=== PATIENT | male | born 1975 | race African-American/Black ===

== ENCOUNTER 2019-11-24 10:33 | Inpatient (IN) | payer OTHER ==
[~2019-11-24] VITALS: Ht 185.4 cm; Wt 145.6 kg
[2019-11-24 10:36] VITALS: BP 88/59
[2019-11-24 11:07] LABS: ABSOLUTE NEUTROPHILS 4.4 thou/uL (1.4-8.2); BASOPHILS 0.8 % (0.0-2.0); EOSINOPHILS 1.6 % (0.0-3.0); HEMATOCRIT 36.5 % (42.0-52.0); HEMOGLOBIN 11.9 gm/dL (14.0-18.0); LYMPHOCYTES 11.9 % (24.0-44.0); MCH 30.4 pg (26.0-34.0); MCHC 32.7 g/dL (28.0-37.0); MCV 93.1 fL (80.0-100.0); MONOCYTES 6.4 % (1.0-8.0); PLATELET COUNT 100 thou/uL (150-400); POLYS 79.3 % (36.0-66.0); RBC 3.92 mil/uL (4.50-6.00); RDW 15.4 % (10.5-14.5); WBC 5.6 thou/uL (4.0-11.0)
[2019-11-24 11:14] LABS: CALCIUM 9.1 mg/dL (8.5-10.1); CREATININE 1.4 mg/dL (0.7-1.3); POTASSIUM 5.5 mmol/L (3.5-5.1)
--- NOTE | 2019-11-24 11:24 | EKG ---
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: [facility] : 1975 Requested By: Qiana Villa Order Number: [id number] MD: Jareth Christianson Measurements Intervals [place] Rate: 117 P: [place]: QRS: -59 QRSD: 151 T: 121 QT: 375 QTc: 524 Interpretive Statements Atrial fibrillation IVCD, consider atypical RBBB Left anterior hemiblock, cannot exclude prior inferior infarct No previous ECG available for comparison Electronically Signed On 11-24-2019 11:24:14 CDT by Jareth Christianson [email or web address] <ELECTRONICALLY SIGNED> By: Jareth Christianson MD, FAC 11/24/19 1124 1036 1036 Jareth Christianson MD, [facility] /EPI
[2019-11-24 11:25] LABS: ALBUMIN 4.4 g/dL (3.4-5.0); TOTAL BILIRUBIN 2.9 mg/dL (0.2-1.0); TROPONIN-I 0.11 ng/mL (<0.06)
[2019-11-24 12:11] VITALS: BP 111/68
[2019-11-24 12:35] VITALS: BP 111/68
[2019-11-24 13:10] VITALS: BP 115/90
--- NOTE | 2019-11-24 13:30 | NUR ---
REC PT AT 1330, A&0X4, AMB STEADY, IVF RUNNING, CARDIAC MONITORED, WILL DO ADMISSION AND IMPLEMENT ORDERS. HOSPITALIST ALREADY VISITED W/PT, GAVE ROOM AND CALL LIGHT DEMO. SEE SEPARATE INTERVENTIONS FOR ASSESSMENTS. CARDIAC MONITORED. WILL CONTINUE TO MONITOR
[2019-11-24] MEDS ORDERED: TRAMADOL 50 MG50 MG PO (13:52)
[2019-11-24 15:43] VITALS: BP 108/63
[2019-11-24 21:03] VITALS: BP 108/74
[2019-11-25 00:05] VITALS: BP 114/62
[2019-11-25 05:49] VITALS: BP 100/71
[2019-11-25 05:57] LABS: ABSOLUTE NEUTROPHILS 3.1 thou/uL (1.4-8.2); BASOPHILS 0.9 % (0.0-2.0); EOSINOPHILS 1.2 % (0.0-3.0); HEMOGLOBIN 10.8 gm/dL (14.0-18.0); MCH 30.3 pg (26.0-34.0); MCHC 32.6 g/dL (28.0-37.0); MCV 93.1 fL (80.0-100.0); MONOCYTES 10.7 % (1.0-8.0); PLATELET COUNT 91 thou/uL (150-400); POLYS 75.2 % (36.0-66.0); RBC 3.55 mil/uL (4.50-6.00); RDW 15.5 % (10.5-14.5); WBC 4.2 thou/uL (4.0-11.0)
[2019-11-25 06:06] LABS: CALCIUM 8.9 mg/dL (8.5-10.1); CREATININE 1.6 mg/dL (0.7-1.3)
[2019-11-25 06:08] LABS: POTASSIUM 3.9 mmol/L (3.5-5.1)
[2019-11-25 06:15] LABS: MAGNESIUM 1.6 mg/dL (1.8-2.4); PHOSPHORUS 3.8 mg/dL (2.5-4.9)
[2019-11-25 07:36] VITALS: BP 94/72
--- NOTE | 2019-11-25 08:52 | EKG ---
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: [place] : 1975 Requested By: Jareth Christianson Order Number: [id number] MD: Jareth Christianson Measurements Intervals [place] Rate: 103 P: [place]: QRS: -32 QRSD: 144 T: 148 QT: 384 QTc: 503 Interpretive Statements Incomplete electrocardiogram, recommend repeat tracing Atrial fibrillation Right bundle branch block Compared to ECG 11/24/2019 10:36:52 No significant changes found Electronically Signed On 11-25-2019 8:51:58 CDT by Jareth Christianson [email or web address] <ELECTRONICALLY SIGNED> By: Jareth Christianson MD, [facility] 11/25/19 0851 1347 1347 Jareth Christianson MD, [facility] /EPI
--- NOTE | 2019-11-25 09:28 | 2DMMODE ---
[facility] [place] [address] 2 D/M-MODE ECHOCARDIOGRAM Name: ИРИНА GARDUNO Room #: 210-P ADM IN M.R.#: [id number] Admission: 11/24/19 Attend Phys: Jenny Owens MD Discharge: Date of : 75 Report #: [id number] THIS REPORT FOR: cc: JOSE - No family physician/PCP JOSE - No family physician/PCP Jareth Christianson MD [facility] ~ APPROVED REPORT Study performed: 11/25/2019 08:35:44 EXAM: Comprehensive 2D, Doppler, and color-flow Echocardiogram Patient Location: Bedside Room #: 210 Status: routine BSA: 2.63 HR: 69 bpm BP: 100/71 mmHg Rhythm: Atrial Fibrillation Other Information Study Quality: Good Indications Short of breath. Afib. Hx: Cardiomyopathy, ICD, CHF, HTN. 2D Dimensions RVDd: 54.04 mm IVSd: 11.19 (7-11mm) LVOT Diam: 23.17 (18-24mm) LVDd: 72.23 mm PWd: 11.15 (7-11mm) Ascending Ao: 32.82 (22-36mm) LVDs: 58.05 (25-40mm) Aortic Root: 33.69 mm Volumes Left Atrial Volume (Systole) Single Plane 4CH: 167.04 mL Single Plane 2CH: 157.09 mL LA ESV Index: 69.00 mL/m2 Aortic Valve AoV Peak Maciej.: 0.90 m/s AO Peak Gr.: 3.26 mmHg LVOT Max P.37 mmHg LVOT Max V: 0.59 m/s DARLING Vmax: 2.73 cm2 [facility] [address] [place] [address] 2 D/M-MODE ECHOCARDIOGRAM Name: ИРИНА GARDUNO Room #: 210-P [facility].#: [id number] Admission: 11/24/19 Attend Phys: Jenny Owens, Discharge: Date of : 75 Report #: [id number] Mitral Valve MV Decel. Time: 144.36 ms MV E Max Maciej.: 1.52 m/s Pulmonary Valve PV Peak Maciej.: 0.41 m/s PV Peak Gr.: 0.68 mmHg Tricuspid Valve TR Peak Maciej.: 2.09 m/s RAP Estimate: 15.00 mmHg TR Peak Gr.: 18.00 mmHg PA Pressure: 33.00 mmHg Left Ventricle Left ventricle is severely dilated. There is global hypokinesis of the left ventricle. There is normal left ventricular wall thickness. Left ventricular systolic function is severely decreased. LVEF is 25-30%. This study is not technically sufficient to allow evaluation of the LV diastolic function due to atrial fibrillation. Right Ventricle Right ventricle is dilated. Right ventricle is moderately hypokinetic. Device lead is present in the right ventricle. Atria Biatrial enlargement. Aortic Valve The aortic valve is normal in structure. No aortic regurgitation is present. There is no aortic valvular stenosis. Mitral Valve The mitral valve is normal in structure. Leaflets not coapting properly, teathered posterior leaflet. Severe mitral regurgitation. Tricuspid Valve The tricuspid valve is normal in structure. Severe tricuspid regurgitation. Estimated PAP is 30-35mmHg. Pulmonic Valve The pulmonary valve is normal in structure. Mild pulmonic regurgitation. Great Vessels The aortic root is normal in size. The ascending aorta is normal in [facility] [address] [place] [address] 2 D/M-MODE ECHOCARDIOGRAM Name: ИРИНА GARDUNO Room #: 210-P [facility] IN .R.#: [id number] Admission: 11/24/19 Attend Phys: Jenny Owens, Discharge: Date of : 75 Report #: [id number] size. IVC is dilated and collapses <50% with inspiration. Pericardium There is no pericardial effusion. <Conclusion> Left ventricular systolic function is severely decreased. LVEF is 25-30%. Biatrial enlargement. Lt > right The aortic valve is normal in structure. No aortic regurgitation or stenosis The mitral valve is normal in structure. Leaflets not coapting properly, teathered posterior leaflet. Severe mitral regurgitation. Severe tricuspid regurgitation. Estimated pulmonary artery pressure of 30-35mmHg. There is no pericardial effusion. <ELECTRONICALLY SIGNED> By: Jareth Christianson MD, [facility] 11/25/19927 7 7 Jareth Christianson MD, [facility] /INF
--- NOTE | 2019-11-25 10:10 | HC ---
[facility] [address] [address] CONSULTATION Name: ИРИНА GARDUNO Room #: 210-P [facility] IN M.R.#: [id number] Admission: 11/24/19 Attend Phys: Jenny Owens MD Discharge: Date of : 75 Report #: [id number] THIS REPORT FOR: cc: JOSE - No family physician/PCP JOSE - No family physician/PCP Jareth Christianson MD [facility] ~ DATE OF SERVICE: 11/24/2019 HISTORY OF PRESENT ILLNESS: The patient is a 43-year-old gentleman with severe nonischemic cardiomyopathy. He is originally from [place], [place] and has moved to the [place] area. When he was making a move about a month ago, he developed heart failure and was admitted at where he tells me was diuresed over 60 pounds. He has recently been doing well from the fluid management standpoint. This morning while eating breakfast, he tells me that his defibrillator went off at 8 or 9 times. Paramedics were summoned and the device discharged 4-6 more times. On presentation, he was found to be in atrial fibrillation with a rapid ventricular response. He denies palpitations. He denies chest heaviness or pressure. The ICD was placed in 2002 in [place], at which time coronary angiography was undertaken, normal vasculature. These records have been requested. He denies orthopnea or paroxysmal nocturnal dyspnea. There is a history of diet-controlled diabetes. No history of dyslipidemia, tobacco dependency. There is a history of hypertension and family history of cardiomyopathy. ALLERGIES: There are no known drug allergies. MEDICATIONS: Include potassium 10 mEq daily, Entresto 49/51 one tablet twice daily, Aldactone 25 mg daily, Lasix 80 mg daily, carvedilol 25 mg 1 tablet twice daily; amiodarone 200 mg twice daily, he was told by his chip drier to stop this many months ago and metolazone 5 mg daily. PAST MEDICAL HISTORY: Medical records have been reviewed and include a history of remote elbow surgery, nonischemic cardiomyopathy, congestive heart failure. SOCIAL HISTORY: He is disabled. Nonsmoker, nondrinker. FAMILY HISTORY: Notable for mother with cardiomyopathy and heart failure. REVIEW OF SYSTEMS: All systems negative except as that noted above. PHYSICAL EXAMINATION: GENERAL: A pleasant gentleman in no distress. VITAL SIGNS: Blood pressure is 115/90, heart rate of 106 and irregular, [facility] [address] [place] [address] CONSULTATION Name: ИРИНА GARDUNO Room #: 210-P [facility] IN ..#: [id number] Admission: 11/24/19 Attend Phys: Jenny Owens MD Discharge: Date of : 75 Report #: [id number] respirations unlabored at 18. HEENT: There are neither xanthelasma, subcutaneous xanthomata, oral mucosal or digital cyanosis or kyphoscoliosis present. CHEST: Clear to auscultation and percussion. CARDIAC: An irregularly irregular rhythm with normal S1, S2. 3/6 systolic murmur ABDOMEN: Soft and nontender. EXTREMITIES: With chronic venous stasis changes, trace edema. Radial pulses are 2+. NEUROLOGIC: He is alert with a nonfocal exam. LABORATORY DATA: EKG, atrial fibrillation with a nonspecific intraventricular conduction delay. Sodium is 132, potassium 5.5, creatinine 1.4. Troponin 0.11. ProBNP of 2379. White count 5.6, hemoglobin 11, hematocrit 36, platelet count 100,000. Thyroid function studies; TSH 4.479. Chest x-ray demonstrates cardiomegaly; this appears to be a single lead device. IMPRESSION: 1. Atrial fibrillation with a rapid ventricular response. 2. ICD discharge, possibly related to #1 above. 3. Nonischemic cardiomyopathy, chronic systolic heart failure. 4. Hypertension. 5. Chronic kidney disease. 6. Diabetes, dietary management. RECOMMENDATIONS: 1. Interrogate ICD. 2. Obtain outside hospital records, requested. 3. Continued guideline-directed therapy for cardiomyopathy and congestive heart failure. Further thoughts and plans will be forthcoming based on this evaluation. I suspect his ICD discharges were inappropriate today due to AFib with a rapid ventricular response. <ELECTRONICALLY SIGNED> By: Jareth Christianson MD, FACC 11/25/19 1010 1337 1434 Jareth Christianson MD, FACC /nt
--- NOTE | 2019-11-25 11:05 | EKG ---
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[place] : 1975 Requested By: Jenny Owens Order Number: [id number] MD: Fritz Martinez Measurements Intervals [place] Rate: 117 P: [place]: QRS: -50 QRSD: 148 T: 134 QT: 388 QTc: 542 Interpretive Statements Atrial flutter IVCD, consider atypical RBBB LVH with IVCD, LAD and secondary repol abnrm Probable inferior infarct, acute Prolonged QT interval Compared to ECG 11/24/2019 13:47:29 Electronically Signed On 11-25-2019 11:05:46 CDT by Fritz Martinez [email or web address] <ELECTRONICALLY SIGNED> By: Fritz Martinez MD 11/25/19 1105 1354 1354 Fritz Martinez MD /EPI
--- NOTE | 2019-11-25 14:48 | NUR ---
Nutrition: pt admitted following defibrillator firing > 10 times. Per cardiology suspected related to afib, RVR. Adjusting meds. PMH: NICM, heart failure, DM2. RD consulted related to obesity/CHF. BMI 42, extreme class 3 obesity. BG 107-118, A1C pending. Eating well on Heart healthy carb controlled diet. Pt was very sleepy during visit. RD offered education on healthy weight loss/Na+ control. Pt denied need but agreed to read through materials. RD left materials and name/# at bedside. Encouraged pt to contact RD to review as desired. Consider low nutrition risk.
[2019-11-25 17:05] VITALS: BP 98/55
--- NOTE | 2019-11-25 18:19 | NUR ---
ASSUMED CARE AT SHIFT CHANGE, C/O PAIN AND DISCOMFORT EARLY IN THE SHIFT, AND HAD EPISODE OF INCONTINENCE. DR MEDINA SEEN PATIENT, ADJUSTED MEDICATION, AND CARDIZEM GTT DISCOMTINUED PER ORDERS. VSS, VPACED/AFIB ON THE MONITOR.MAKES NEEDS KNOWN AND CALLS APPROPRIATELY. AND WILL CONTINUE WITH THE CURRENT POC.
[2019-11-25 20:55] VITALS: BP 94/65
[2019-11-26 01:06] LABS: GLYCOHEMOGLOBIN (HGB A1C) 6.1 % (4.8-5.6)
--- NOTE | 2019-11-26 02:15 | NUR ---
ASSESSMENTS CHARTED, MEDS CHARTED GIVEN. PATIENT REFUSED TO TAKE ALL OF THE NIGHT TIME AMIODARONE DOSE STATING THAT IT WOULD UPSET HIS STOMACH, AND REFUSED TO TAKE THE PROTONICS THAT THE DOCTOR PRESCRIBED TO HELP HIS STOMACH. PATIENT STATED THAT HE HAD ONLY BEEN TAKING 1/2 A TAB INSTEAD OF A FULL TAB AND THE DOCTOR WAS GOING TO CHANGE THE DOSE. THE ORIGINAL DOSE WAS CANCELLED AND THE EXACT SAME ORDER REPLACED IT. SPOKE WITH DR. GUZMAN AND HE SAID THE PATIENT COULD TAKE WHATEVER HE WANTED TONIGHT, THAT THEY WOULD STRAIGHTED IT OUT IN THE MORNING. DOCUMENTED GIVEN. FALL PRECAUTIONS IN PLACE DURING SHIFT.
[2019-11-26 04:45] VITALS: BP 95/56
[2019-11-26 05:22] LABS: CALCIUM 8.9 mg/dL (8.5-10.1); CREATININE 1.7 mg/dL (0.7-1.3); POTASSIUM 3.8 mmol/L (3.5-5.1)
[2019-11-26 08:12] VITALS: BP 115/77
[2019-11-26 08:39] LABS: ALBUMIN 3.6 g/dL (3.4-5.0); DIRECT BILIRUBIN 1.3 mg/dL (<0.1-0.2); TOTAL PROTEIN 8.1 g/dL (6.4-8.2)
--- NOTE | 2019-11-26 09:58 | EKG ---
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
[2019-11-26] MEDS ORDERED: METOLAZONE 2.52.5 MG PO (11:52)
[2019-11-26] MEDS ORDERED: LASIX 40 MG TAB40 M1 PO (11:52)
[2019-11-26] MEDS ORDERED: CARVEDILOL25 MG PO (11:52)
[2019-11-26] MEDS ORDERED: K-DUR 20 MEQ T20 MEQ PO (11:52)
[2019-11-26] MEDS ORDERED: ENTRESTO 24 MG1 EACH PO (11:52)
[2019-11-26] MEDS ORDERED: SPIRONOLACTONE25 M1 PO (11:52)
[2019-11-26] MEDS ORDERED: PACERONE 200 M200 M1 PO (11:52)
[2019-11-26 14:35] VITALS: BP 115/77
--- NOTE | 2019-11-26 15:32 | NUR ---
ASSUMED CARE PT APPROX 1500. PT ALERT AND ORIENTED. VSS. 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 PT CURRENTLY SITTING UP IN CHAIR, NEEDS IN REACH DENIES CONCERNS. WILL CONT TO MONITOR PT UNTIL DC.
[2019-11-26] MEDS ORDERED: XARELTO20 MG PO (15:46)
[2019-11-26 16:40] VITALS: BP 92/59
--- NOTE | 2019-11-26 18:00 | NUR ---
PT PRESCRIPTONS SENT TO [facility], PT REQUESTED THEY BE SENT TO [facility] [place]. OUTPATIENT [facility] CONTACTED, SPOKE WITH LUCIANO, REQUESTED THAT THE PHARMACIST FROM [facility] CALL AND SPEAK WITH HIM. [facility] CONTACTED, SPOKE WITH AARON, [facility] OUTPATIENT NUMBER GIVEN TO AARON, INSTRUCTED TO CALL ALTONA WITH [facility] TO GET MEDS TRANSFERRED.
[2019-11-26 18:12] VITALS: BP 115/77
--- NOTE | 2019-11-26 18:30 | NUR ---
PT LEFT UNIT WITH ALL BELONGINGS AT APPROX 1820. IV REMOVED TELE REMOVED.
== END 2019-11-26 18:20 | disposition home or self-care (01) | DRG 315 ==
LOC: ER 10:33 → 2N 12:40
PROVIDERS: Emergency Medicine; Internal Medicine; ADMIT Internal Medicine; ATTEND Internal Medicine
DX: T82.118A Breakdown (mechanical) of other cardiac electronic device, initial encounter (principal); Z68.41 Body mass index [BMI] 40.0-44.9, adult; I42.9 Cardiomyopathy, unspecified; I50.22 Chronic systolic (congestive) heart failure; I13.0 Hypertensive heart and chronic kidney disease with heart failure and stage 1 through stage 4 chronic kidney disease, or unspecified chronic kidney disease; Z87.891 Personal history of nicotine dependence; I48.91 Unspecified atrial fibrillation; N18.30 Chronic kidney disease, stage 3 unspecified; E66.01 Morbid (severe) obesity due to excess calories; E87.5 Hyperkalemia; D69.6 Thrombocytopenia, unspecified; D64.9 Anemia, unspecified; E11.22 Type 2 diabetes mellitus with diabetic chronic kidney disease; Y83.8 Other surgical procedures as the cause of abnormal reaction of the patient, or of later complication, without mention of misadventure at the time of the procedure; Y92.89 Other specified places as the place of occurrence of the external cause; Z88.6 Allergy status to analgesic agent
CPT/HCPCS: 10081

== ENCOUNTER 2019-11-27 13:01 | Inpatient (IN) | payer OTHER ==
[~2019-11-27] VITALS: Ht 185.4 cm; Wt 141.5 kg
--- NOTE | ~2019-11-27 | HC ---
[facility] [place] [address] CONSULTATION Name: ИРИНА GARDUNO Room #: 212-P ADM IN M.R.#: [id number] Admission: 11/27/19 Attend Phys: Luis Felipe Menchaca MD Discharge: Date of : 75 Report #: [id number] THIS REPORT FOR: cc: FAM - No family physician/PCP FAM - No family physician/PCP Gilberto Bennett MD ~ DATE OF SERVICE: 11/28/2019 REASON FOR CONSULTATION: Abdominal pain. ASSESSMENT: Abdominal pain. RECOMMENDATIONS: Thank you for the consultation. We will follow along. IMAGING: Reviewed. A CT scan is relatively not impressive regarding his gallbladder. In addition to that, the patient reports that his pain is resolved. Therefore, there is no surgery planned for this patient; however, if his symptoms return or his presentation changes, we will reconsider. If other consultants are more concerned about cholecystitis. The next step would be a PIPIDA scan, however, the patient is currently asymptomatic. HISTORY OF PRESENT ILLNESS: The patient is a 43-year-old gentleman who presented with epigastric abdominal pain. The patient was found by his family member to be nauseated and vomiting and on the floor with abdominal pain, so the ER was called. These symptoms have since resolved. The patient was recently hospitalized for similar symptoms. The patient was discharged home. PAST MEDICAL HISTORY: 1. Morbid obesity. 2. Hyperkalemia. 3. Chronic kidney disease, stage 3. 4. Atrial fibrillation with rapid ventricular response. 5. Congestive heart failure. 6. Nonischemic cardiomyopathy. 7. Status post automatic implantable cardioverter-defibrillator. 8. Hypertension. 9. Diabetes mellitus. PAST SURGICAL HISTORY: Elbow surgery. SOCIAL HISTORY: Denies use of alcohol or tobacco. He does use marijuana occasionally. [facility] [address] [place] [address] CONSULTATION Name: SHAANИРИНА Room #: 212-P [facility] IN M.R.#: [id number] Admission: 11/27/19 Attend Phys: Luis Felipe Menchaca MD Discharge: Date of : 75 Report #: [id number] REVIEW OF SYSTEMS: CONSTITUTIONAL: No fever. No chills. HEENT: Denies blurring of vision, double vision, headaches, hearing loss, sinus drainage or sore throat. Denies blurring of vision, double vision, headaches, hearing loss, sinus drainage or sore throat. CARDIOVASCULAR: See above and below. RESPIRATORY: Denies cough, wheezing, hemoptysis, or shortness of air. GASTROINTESTINAL: See above and below. GENITOURINARY: Denies dysuria or hematuria or kidney stones. No urinary frequency, urgency or incontinence. Denies dysuria or hematuria or kidney stones. No urinary frequency, urgency or incontinence. MUSCULOSKELETAL: No joint pain. No muscle pain. NEUROLOGICAL: Denies tremor, stroke or seizure. Denies tremor, stroke or seizure. HEMATOLOGIC / LYMPHATICS: Denies easy bruising, easy bleeding or enlarged lymph nodes. SKIN: No rash or ulceration. ENDOCRINE: No heat or cold intolerance PSYCHIATRIC: Denies depression, anxiety, or schizophrenia. PHYSICAL EXAMINATION: VITAL SIGNS: Temperature 36.1, pulse 67, respiratory rate 18, blood pressure 94/63, pulse oximetry 99%. GENERAL: No apparent distress, alert and oriented x3. HEENT: PERRLA, EOMI, MMM, NCAT NECK: Supple. No LAD CARDIOVASCULAR: Regular rhythm and rate. Hemodynamically stable. Normal capillary refill. Regular rhythm and rate. Hemodynamically stable. Normal capillary refill. PULMONARY: Nonlabored. Clear to auscultation bilaterally ABDOMEN: Soft, nontender, nondistended, no guarding, no rebound, no rigidity. EXTREMITIES: Calves soft, nontender, no edema. SKIN: No rashes or bruises. PSYCHIATRIC: Normal mood and affect Normal mood and affect NEUROLOGICAL: Grossly intact. CN II-XII grossly intact. MUSCULOSKELETAL: Bilateral severe extremity edema with chronic skin changes. LYMPHATICS: No cervical, inguinal, or supraclavicular lymphadenopathy. LABORATORY DATA: White blood count 4.6, hemoglobin 11, hematocrit 33.4, platelets 108. Sodium 137, potassium 3.8, creatinine 1.4. Troponin 0.09. IMAGING: CT of the abdomen and pelvis. IMPRESSION AND PLAN: Bladder wall thickening with perivascular inflammatory [address] [address] CONSULTATION Name: ИРИНА GARDUNO Room #: 212-P [facility] IN M.R.#: [id number] Admission: 11/27/19 Attend Phys: Luis Felipe Menchaca MD Discharge: Date of : 75 Report #: [id number] soft tissue stranding concerning for urinary tract infection. Correlate with urinalysis. Nonspecific small amount of perihepatic, perisplenic and pelvic free fluid. No focal inflammatory mass or bowel obstruction. By: 1448 2152 Gilberto Bennett MD /nt
[2019-11-27 13:01] VITALS: BP 93/50
[~2019-11-27 13:01] MED LIST: CARVEDILOL25 MG PO; ENTRESTO 24 MG1 EACH PO; K-DUR 20 MEQ T20 MEQ PO; LASIX 40 MG TAB40 M1 PO; METOLAZONE 2.52.5 MG PO; PACERONE 200 M200 M1 PO; SPIRONOLACTONE25 M1 PO; TRAMADOL 50 MG50 MG PO; XARELTO20 MG PO
--- NOTE | 2019-11-27 13:11 | NUR ---
Pt denies fevers. Denies abdominal surgery. Reports he had an US that checked out during his recent hospital stay. Reports he took his medicine and then 5 minutes later started having middle, lower abdominal pain
--- NOTE | 2019-11-27 13:27 | NUR ---
Lab notified to come straight stick patient at this time.
[2019-11-27 14:28] LABS: HEMATOCRIT 33.4 % (42.0-52.0); MCH 30.4 pg (26.0-34.0); MCHC 32.9 g/dL (28.0-37.0); MCV 92.5 fL (80.0-100.0); RBC 3.61 mil/uL (4.50-6.00); WBC 4.6 thou/uL (4.0-11.0)
[2019-11-27 14:37] LABS: CALCIUM 8.7 mg/dL (8.5-10.1); CREATININE 1.7 mg/dL (0.7-1.3)
[2019-11-27 14:43] LABS: ALBUMIN 3.4 g/dL (3.4-5.0); TOTAL BILIRUBIN 1.5 mg/dL (0.2-1.0); TOTAL PROTEIN 8.3 g/dL (6.4-8.2)
--- NOTE | 2019-11-27 15:45 | NUR ---
MONITOR WITH RUN OF WIDE COMPLEX TACHYCARDIA REPEAT PT DENIES PAIN OR DISCOMFORT INFORMED
--- NOTE | 2019-11-27 15:51 | EKG ---
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[facility] : 1975 Requested By: Hugh Etienne Order Number: [id number] MD: Abhijit Palomo Measurements Intervals [place] Rate: 98 P: [place]: QRS: -56 QRSD: 169 T: 130 QT: 433 QTc: 553 Interpretive Statements Atrial fibrillation IVCD, consider atypical RBBB Abnrm T, consider ischemia, anterolateral lds Compared to ECG 11/26/2019 07:23:42 No significant changes Electronically Signed On 11-27-2019 15:51:01 CDT by Abhijit Palomo [email or web address] <ELECTRONICALLY SIGNED> By: Abhijit Palomo MD, FACC 11/27/19 1551 1307 1307 Abhijit Palomo MD, [facility] /EPI
[2019-11-27 17:21] LABS: URINE BILIRUBIN NEGATIVE (Negative); URINE BLOOD 1+ (Negative); URINE CLARITY CLEAR; URINE COLOR YELLOW; URINE GLUCOSE-RANDOM* NEGATIVE (Negative); URINE KETONES NEGATIVE (Negative); URINE LEUKOCYTES-REFLEX NEGATIVE (Negative); URINE NITRITE-REFLEX NEGATIVE (Negative); URINE PROTEIN (DIPSTICK) NEGATIVE (Negative)
[2019-11-27 17:31] LABS: BACTERIA-REFLEX 1-9 Few /HPF (None Seen); CASTS None Seen /LPF (None Seen); CRYSTALS None Seen /LPF (None Seen); SQUAMOUS None Seen /LPF (0-3); URINE RBC 3-10 Few /HPF (0-2); URINE WBC-REFLEX None Seen /HPF (0-5)
[2019-11-27 19:50] VITALS: BP 99/64
--- NOTE | 2019-11-27 19:50 | NUR ---
HAND OFF TOOL SENT TO [facility]
[2019-11-27 20:00] VITALS: BP 108/66
[2019-11-27 20:45] VITALS: BP 125/94
[2019-11-27 23:51] LABS: CHOLESTEROL 66 mg/dL (<200); HDL CHOLESTEROL 29 mg/dL (>40); LDL CHOLESTEROL 29 mg/dL (<100); SERUM ASSESSMENT Clear; TC:HDL 2.3 Ratio (Not establshd); TRIGLYCERIDE 42 mg/dL (<150); VLDL 8 mg/dL (<40)
[2019-11-28 00:45] VITALS: BP 103/69
--- NOTE | 2019-11-28 01:04 | NUR ---
PT NEW ADMIT. ARRIVE ON UNIT 2000, FOR ABDOMINAL PAIN. PT DENIES CHEST PAIN, NAUSEA AND VOMITING. ADMISSION COMPLETED. CONSENT FORMS SIGNED. ORIENTED TO ROOM AND CALL LIGHT SYSTEM. PT HAS DIABETIC FOOT ULCERS; LEFT LOWER EXTREMITY, RIGHT SECOND TOE, AND BETWEEN THE LEFT AND SECOND TOE. CLEAN WITH SOAP AND WATER. GAUZE BETWEEN TOES TO ABSORB MOISTURE. AFIB RATE CONTROLLED. PT REPORTS BEING UNABLE TO CARE FOR HIS FEET INDEPENDENTLY. WILL CONTINUE TO MONITOR AND FOLLOW POC.
[2019-11-28 04:45] VITALS: BP 95/63
[2019-11-28 06:16] LABS: CALCIUM 9.1 mg/dL (8.5-10.1); CREATININE 1.4 mg/dL (0.7-1.3); POTASSIUM 3.8 mmol/L (3.5-5.1); TROPONIN-I 0.09 ng/mL (<0.06)
--- NOTE | 2019-11-28 07:53 | EKG ---
[facility] [place] [address] [place] [address] ELECTROCARDIOGRAM REPORT Name: MOMO GARDUNOIAN Room #: 212- ADM IN M.R.#: [id number] Admission: 11/27/19 Attend Phys: Luis Felipe Menchaca MD Discharge: Date of : 75 Report #: [id number] THIS REPORT FOR: cc: JOSE - Nubia family physician/PCP JOSE - Nubia family physician/PCP Abhijit Palomo MD [facility] ~ THIS REPORT FOR: //name// [facility] ED Test Date: 2019-11-27 Test Time: 15:41:04 Pat Name: ИРИНА GARDUNO Department: Room: 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
[2019-11-28 08:20] VITALS: BP 107/64
--- NOTE | 2019-11-28 10:14 | NUR ---
Assess due to RD consult. Pt recently discharged from this facility and now readmitted with abdominal pain, nausea. Had refused consent for lap sanjuana. Surgery has been reconsulted for this admission. BMI 41.2=extreme obesity. Also hx AICD, HTN, DM, CHF. Pt had accepted nutrition education materials last admit for heart healthy diet. A1C 6.1, excellent BG control. Has right toe ulcer. Presents at low nutrition risk.
--- NOTE | 2019-11-28 11:08 | NUR ---
WOUND CONSULT; I AM HERE TODAY TO ASSESS BILATERAL FEET/TOES/LEGS. THE RN INFORMED ME OF A LEFT BUTTOCK WOUND. THE BILATERAL TOES ARE RELATED TO AN UKNOWN ETIOLOGY POSSIBLY FUNGAL. RN REPORT THE PATIENT IS A DIABETIC. THE BILATERAL TOE WOUNDS HAVE PINK WOUND BEDS. THE BUTTOCK WOUND LOOKS LIKE AN UNSTABLE BLISTER. CANNOT RULE OUT CONTAMINATION VS INFECTION. THE PATIENT ALSO NEEDS AMMONIA LACTATE LOTION. RECOMMENDATION; CONSULT DR INDU NICOLE DISCUSSED WITH RN
[2019-11-28 11:30] VITALS: BP 94/63
[2019-11-28 15:30] VITALS: BP 96/60
--- NOTE | 2019-11-28 17:25 | NUR ---
ASSESSMENT CHARTED - MEDS PER JANICE - RADHA DIET AND FLUIDS. PT NOT WANTING TO GET OUT OF BED AND UP TO THE BATHROOM TO USE URINAL - INFORMED PATIENT THAT DOCTOR WANTED HIM OUT OF BED AND MOVING TO ENSURE THAT HEART RATE STAY LOW - WAS NOT HAPPY WITH THIS - STATED HE WOULD GET OUT OF BED WHEN HE WAS READY AND NOT BEFORE - WHEN ROUNDING LATER PATIENT STATED THAT HE GOT OUT OF THE BED - WALKED AROOUND THE ROOM AND INTO THE BATHROOM - NOT SURE WHEN PATIENT DID THIS BUT MONITOR DID NOT ALARM. SEEN BY WOUND CARE THIS SHIFT - LIGHT DRESSING TO FEET. PT STARTED ON CARDIZEM PO THIS SHIFT - PT DID HAVE SOME SUSTAINED TACHYCARDIA WHEN HE WAS UP ON THE COMMODE THIS AM HAVE A BM. PLACED IN BED AND HR DROPPED BACK DOWN. NO CO'S OF PAIN OR NAUSEA. APPEARS TO BE COMFORTABLE AT THE PRESENT TIME.
[2019-11-28 20:15] VITALS: BP 103/69
[2019-11-29 00:45] VITALS: BP 93/57
--- NOTE | 2019-11-29 03:34 | NUR ---
ASSUMED CARE 1900, PT ALERT AND ORIENTED. DENIES ANY ABDOMINAL PAIN. REPORTS INTERMITTENT SYMPTOMATIC HEART FLUTTER. PT RELUCTANT TO AMBULATE FURTHER DISTANCE DUE TO FEAR OF INCREASED HEART RATE. VITALS STABLE , BUT SOFT PRESSURES. DENIES DIZZYNESS, OR CHEST PAIN. NO OTHER CONCERNS AT THIS TIME.
[2019-11-29 04:45] VITALS: BP 92/54
[2019-11-29] MEDS ORDERED: CARDIZEM CD240 M1 PO (07:46)
[2019-11-29 08:00] VITALS: BP 90/50
--- NOTE | 2019-11-29 09:21 | NUR ---
ASSESSMENT: CM REVIEWED CHART AND SPOKE WITH PATIENT. PT WAS JUST RECENTLY HERE 11/23 AND DISCHARGED ON 11/25 AFTER REFUSING TO HAVE A LAP [place]. PT NOW PRESENTS BACK TO [facility] WITH INCREASED TROPONIN AND ABDOMINAL PAIN. PT REPORTS HE LIVES IN AN [place] WITH HIS MOTHER. PT REPORTS NO STEPS TO ENTER AND HAS AN ELEVATOR. PT REPORTS THAT HE AMBULATES INDEPENDENTLY AND IS INDEPENDENT WITH ADLS. PT REPORTS THAT HE HAS NOT HAD HH IN THE PAST OR BEEN TO AN ACUTE REHAB/SNF. PT DENIES HAVING ANY OXYGEN AT HOME OR CPAP. PT HAD INCREASED HR AND ICD WAS REPROGRAMMED. CM DISCUSSED ROLE. PT DOES NOT ANTICIPATE HAVING AND NEEDS FROM CM PRIOR TO DISCHARGE. CM WILL COTINUE TO FOLLOW TO ASSIST NEEDED.
[2019-11-29 11:24] VITALS: BP 85/55
[2019-11-29] MEDS ORDERED: PEPCID20 MG PO (12:34)
[2019-11-29 17:14] VITALS: BP 90/65
--- NOTE | 2019-11-29 19:23 | NUR ---
assessment as charted - meds as per apr - coreg held this evening due to low bp. pr sitting on side of the bed for the day with legs dangling would not elelvate - wwound care doc orered unltrsound of legs bilat pt refused to have these done - stating his legshave been theway they are forever and they are actually better than they used to be. encourage patient to have test done adimantly refused. pt to have dressing placed to legs bilat - unable to complet on my shift due to dr not ordering med and then pharmacy not delivering - inform night nurse of need to do dressing. pt upset this afternoon stating he is scared to go home and what is going to happen to him - informed hm that we would be ordering home health for him to do dressing changes and monitor him at home.
[2019-11-30 04:30] VITALS: BP 87/56
--- NOTE | 2019-11-30 05:30 | NUR ---
NO EVENTS OVERNIGHT. LOWER EXTREMETIES DRESSING CHANGE DONE. PT NOT SLEEPING DESPITE MULTIPLE ENCOURAGEMENTS. REPORTS INTERMITTENT HEART FLUTTERS, NO REPORTS OF ICD FIRING. PT REMAINS WITH SOFT BPs. WILL CONTINUE TO MONITOR.
[2019-11-30 08:25] VITALS: BP 96/62
[2019-11-30 12:00] VITALS: BP 97/55
[2019-11-30 13:06] VITALS: BP 97/55
--- NOTE | 2019-11-30 14:59 | NUR ---
ASSUMED CARE AT SHIFT CHANGE, ASSESSMENT CHARTED, AND VSS. DISCHARGE AND MEDICATIONS INSTRUCTION GIVEN TO PATIENT. PATIENT DISCHARGED HOME.
== END 2019-11-30 14:42 | disposition home or self-care (01) | DRG 444 ==
LOC: ER 13:01 → 2N 19:24 → EROBS 19:24 → 2N 20:00
PROVIDERS: Emergency Medicine; Nurse Practitioner Family; ADMIT Hospitalist; ATTEND Hospitalist
DX: K81.0 Acute cholecystitis (principal); I21.4 Non-ST elevation (NSTEMI) myocardial infarction; I13.0 Hypertensive heart and chronic kidney disease with heart failure and stage 1 through stage 4 chronic kidney disease, or unspecified chronic kidney disease; I50.22 Chronic systolic (congestive) heart failure; I48.20 Chronic atrial fibrillation, unspecified; I42.8 Other cardiomyopathies; Z68.41 Body mass index [BMI] 40.0-44.9, adult; N30.90 Cystitis, unspecified without hematuria; E87.5 Hyperkalemia; N18.30 Chronic kidney disease, stage 3 unspecified; E11.22 Type 2 diabetes mellitus with diabetic chronic kidney disease; E66.01 Morbid (severe) obesity due to excess calories; Z79.899 Other long term (current) drug therapy; Z79.01 Long term (current) use of anticoagulants; Z87.891 Personal history of nicotine dependence; Z95.810 Presence of automatic (implantable) cardiac defibrillator
CPT/HCPCS: 10081

== ENCOUNTER 2019-12-01 04:57 | Inpatient (IN) | payer OTHER ==
[~2019-12-01] VITALS: Ht 185.4 cm; Wt 96.2 kg
--- NOTE | ~2019-12-01 | HC ---
[facility] [place] [address] [place] [address] CONSULTATION Name: ИРИНА GARDUNO Room #: 202-P [facility] IN M.R.#: [id number] Admission: 12/01/19 Attend Phys: Jenny Owens MD Discharge: Date of : 75 Report #: [id number] THIS REPORT FOR: cc: JOSE - No family physician/PCP JOSE - No family physician/PCP Maribel Suarez MD ~ REASON FOR PRESENTATION: Low blood pressure. REASON FOR CONSULTATION: Acute kidney injury. HISTORY OF PRESENT ILLNESS: A 43-year-old who presented on the with severe hypotension and was found to have acute kidney injury. Currently, the patient's blood pressure had been in the 80s-50s range. The patient's creatinine on the was reported to be 4.2. The patient's prior creatinine values were in the 1.4-1.6. He has advanced cardiomyopathy with an ejection fraction of around 30%. He was found to have an AFib with RVR. He was initiated on diltiazem. The patient's chronic medications include Entresto, spironolactone, furosemide, diltiazem. He is not aware of any particular kidney issues in the past. No known personal or family history of cystic kidney disease, nephrolithiasis, glomerulonephritis, connective tissue disorders. No known history of proteinuria or hematuria. On arrival of the EMS, the patient's blood pressure was 58/30. The patient's creatinine had stabilized at 4.2. I was asked to assist with the management of his chronic kidney disease and acute kidney injury. PAST MEDICAL HISTORY: Extensive and includes the followin. Cardiomyopathy with ejection fractions of around 30%. 2. Status post automatic implantable cardioverter-defibrillator. 3. Hypertension. 4. Diabetes mellitus. 5. Chronic lower extremity wound and edema. 6. Morbid obesity. 7. Gallbladder surgery. MEDICATIONS: 1. Xarelto. 2. Neurontin. 3. Carvedilol. 4. Entresto. 5. Spironolactone. 6. Furosemide. ALLERGIES: None. FAMILY HISTORY: No known family history of hypertension or CKD. [facility] [address] [place] [address] CONSULTATION Name: ИРИНА GARDUNO Room #: 202-P [facility] IN M.R.#: [id number] Admission: 12/01/19 Attend Phys: Jenny Owens MD Discharge: Date of : 75 Report #: [id number] REVIEW OF SYSTEMS: GENERAL: No fever or chills. CARDIOVASCULAR: Significant for lightheadedness. CHEST AND PULMONARY: No cough or hemoptysis. GASTROINTESTINAL: No nausea or vomiting. GENITOURINARY: No frequency, no urgency; however, he did report to previous issues with bladder blockage as he stated. PAST SURGICAL HISTORY: AICD placement. PHYSICAL EXAMINATION: VITAL SIGNS: Temperature 36.7, pulse rate 97, respiratory rate 20, blood pressure 93/60. HEAD AND NECK: No jugular venous distention. CHEST: No crackles. CARDIOVASCULAR: No rub. ABDOMEN: Soft. LOWER EXTREMITIES: Extensive edema. LABORATORY VALUES: Sodium is 136, BUN is 67, creatinine is 4.2. Hemoglobin is 11, platelets 108. IMPRESSION AND PLAN: 1. Acute kidney injury. 2. Severe cardiomyopathy. 3. Severe hypertension. 4. Atrial fibrillation. 5. The patient's acute kidney injury is all related to hypertension. 6. Give some albumin given his cardiomyopathy history. 7. Continue to hold angiotensin converting enzyme inhibitor, Entresto, spironolactone, Lasix for now. 8. Management of atrial fibrillation per Cardiology. 9. Watch blood pressure. 10. Avoid nephrotoxins. 11. No diuresis at this point. 12. Salt restriction. 13. Wound care. By: [id number] Maribel Suarez MD /nt
[~2019-12-01 04:57] MED LIST changes: +CARDIZEM CD240 M1 PO; +PEPCID20 MG PO
[2019-12-01 05:24] LABS: HEMATOCRIT 33.1 % (42.0-52.0); MCH 30.4 pg (26.0-34.0); MCHC 33.2 g/dL (28.0-37.0); MCV 91.7 fL (80.0-100.0); PLATELET COUNT 108 thou/uL (150-400); RBC 3.61 mil/uL (4.50-6.00); RDW 15.1 % (10.5-14.5); WBC 4.9 thou/uL (4.0-11.0)
[2019-12-01 05:35] LABS: ANION GAP 13 mmol/L (7-16); BUN 61 mg/dL (7-18); CALCIUM 8.9 mg/dL (8.5-10.1); CHLORIDE 98 mmol/L (98-107); CO2 25 mmol/L (21-32); CREATININE 4.2 mg/dL (0.7-1.3); GLUCOSE 144 mg/dL (74-106); POTASSIUM 4.4 mmol/L (3.5-5.1); SODIUM 136 mmol/L (136-145)
[2019-12-01 05:45] LABS: ALBUMIN 3.7 g/dL (3.4-5.0); LIPASE 65 U/L (73-393); MAGNESIUM 1.7 mg/dL (1.8-2.4); SGOT 12 U/L (15-37); SGPT 16 U/L (30-65); TOTAL BILIRUBIN 1.5 mg/dL (0.2-1.0); TOTAL PROTEIN 8.4 g/dL (6.4-8.2); TROPONIN-I <0.06 ng/mL (<0.06)
[2019-12-01 06:22] VITALS: BP 100/61
--- NOTE | 2019-12-01 06:27 | NUR ---
ATTEMPTED TO CALL REPORT, UNIT REPORTS NOT KNOWING OF PATIENT AND WILL CALL BACK SHORTLY.
[2019-12-01 07:03] VITALS: BP 100/61
[2019-12-01 08:38] VITALS: BP 107/41
[2019-12-01 10:08] LABS: ABSOLUTE NEUTROPHILS 3.1 thou/uL (1.4-8.2); ANISOCYTOSIS 1+
[2019-12-01 12:54] VITALS: BP 77/46; BP 78/47
[2019-12-01 13:09] LABS: CREATININE 4.1 mg/dL (0.7-1.3); POTASSIUM 4.5 mmol/L (3.5-5.1)
[2019-12-01 15:05] VITALS: BP 81/52
--- NOTE | 2019-12-01 18:00 | NUR ---
PT ARRIVED TO UNIT AT APPROX 0700. PT ALERT AND ORIENTED. LABRORED BREATHING. PT ON 2L AND STATES WEARS OXYGEN AT HOME "SOMETIMES." STATES FEELS SLIGHTLY SOB. PT SEEN BY CARDIOLOGY NO NEW ORDERS. PT SEEN BY HOSPITALIST ORDERS RECEIVED. BP LOW THIS AFTERNOON PHYSICIAN NOTIFIED ORDERS RECEIVED. ADMISSION COMPLETE. PICTURES TAKEN OF WOUNDS, LEGS RE-DRESSED. WOUND CONSULT PUT IN PER ORDERS. ADMISSION STRIP PRINTED AND DOCUMENTED. PT CURRENTLY SITTINGUP IN BED DENIES NEEDS AT THIS TIME. WILL CONT TO MONITOR AND FOLLOW POC. WILL PASS ON REPORT TO NOC RN.
[2019-12-01 19:48] VITALS: BP 98/67
--- NOTE | 2019-12-02 03:48 | NUR ---
Assumed pt care at 1900. Pt is alert and oriented. No sign of distress noted in pt. Denies pain. Pt is sitting at the bedside. Assessment completed and documented. Fall precaution in place. Scheduled meds administered to pt. No acute events overnight. Pt is stable. Continue to monitor. No further needs at this time.
[2019-12-02 04:26] LABS: CALCIUM 9.3 mg/dL (8.5-10.1); CREATININE 4.2 mg/dL (0.7-1.3); POTASSIUM 4.2 mmol/L (3.5-5.1)
[2019-12-02 05:33] VITALS: BP 93/68
--- NOTE | 2019-12-02 07:31 | EKG ---
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: mpakenney : 1975 Requested By: Hugh Etienne Order Number: [id number] MD: Jareth Christianson Measurements Intervals [place] Rate: 54 P: IN: QRS: -57 QRSD: 159 T: 123 QT: 539 QTc: 511 Interpretive Statements Atrial fibrillation IVCD, consider atypical RBBB Left anterior hemiblock Compared to ECG 11/27/2019 15:41:04 Heart rate has slowed Electronically Signed On 12-02-2019 7:31:35 CDT by Jareth Christianson [email or web address] <ELECTRONICALLY SIGNED> By: Jareth Christianson MD, FAC 12/02/19 0731 050 0 Jareth Christianson MD, [facility] /EPI
--- NOTE | 2019-12-02 07:32 | EKG ---
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: WALLY : 1975 Requested By: Fritz Martinez Order Number: [id number] MD: Jareth Christianson Measurements Intervals [place] Rate: 55 P: [place]: QRS: -55 QRSD: 153 T: 128 QT: 521 QTc: 499 Interpretive Statements Atrial fibrillation IVCD, consider atypical RBBB Left anterior hemiblock Compared to ECG 12/01/2019 05:01:09 No significant changes Electronically Signed On 12-02-2019 7:31:48 CDT by Jareth Christianson [email or web address] <ELECTRONICALLY SIGNED> By: Jareth Christianson MD, FACC 12/02/19 0731 1157 1157 Jareth Christianson MD, [facility] /EPI
[2019-12-02 07:38] VITALS: BP 88/63
[2019-12-02 09:56] LABS: URINE BILIRUBIN NEGATIVE (Negative); URINE BLOOD TRACE (Negative); URINE CLARITY CLEAR; URINE COLOR YELLOW; URINE GLUCOSE-RANDOM* NEGATIVE (Negative); URINE KETONES NEGATIVE (Negative); URINE LEUKOCYTES-REFLEX NEGATIVE (Negative); URINE NITRITE-REFLEX NEGATIVE (Negative); URINE PROTEIN (DIPSTICK) NEGATIVE (Negative); URINE SPECIFIC GRAVITY 1.015 (1.005-1.035); URINE UROBILINOGEN 0.2 E.U./dl (0.2-1.0)
[2019-12-02 11:11] VITALS: BP 97/58
[2019-12-02 16:20] VITALS: BP 100/59
--- NOTE | 2019-12-02 18:38 | NUR ---
ASSUMED CARE PT SHIFT CHANGE. ASSESSMENTS CHARTED. VSS BP LOW MAP STABLE. PT SEEN BY NEPHROLOGY RENAL US ORDERER REFER TO RESULTS. PT REFUSED OT, WORKED WITH PHYS THERAPY TOLERATING FAIR. O2 SATS WNL ON 2L O2. AT APPROX 1710 PT HR ELEVATED IN 170S CARDIOLOGY NOTIFIED ORDERS RECEIVED FOR INCREASED AMIO TONIGHT. DILT GTT STARTED TEMPORARILY PER ORDERS FOR ELEVATED HR. GTT PAUSED PER ORDERS BP <100 SYSTOLIC. FAMILY UPDATED ON CARE. PT CURRENTLY LAYING IN BED ON PHONE WITH FAMILY. BP STABLE. HR STABLE. CONTINUING TO MONITOR. WILL PASS ON REPORT TO SAIRA ELDER.
[2019-12-02 19:02] VITALS: BP 137/82
[2019-12-03] VITALS (8 sets, daily range): BP systolic 90–112; BP diastolic 52–68
--- NOTE | 2019-12-03 03:39 | NUR ---
Assumed pt care at 1900. Pt is alert and oriented. Pt's heart rate keeps staying high with movement. Pt seems to aggravate his elevated heart rate by coughing and he keeps checking on the heart monitor to see what the heart rate is. RN encourage patient to not check on the heart monitor as this could be contributing to his increased heart rate as he keeps coughing. Cardizem drip restarted due to sustaining heart rate and blood pressure monitored as well. Fall precaution in place. Assessment completed and documented. Vital signs stable. Heart rate stayed stable for the most part of the night. Scheduled meds administered to pt. No acute events overnight. Continue to monitor. No further needs at this time.
[2019-12-03 06:37] LABS: ALBUMIN 4.2 g/dL (3.4-5.0); CALCIUM 9.3 mg/dL (8.5-10.1); PHOSPHORUS 3.9 mg/dL (2.5-4.9); POTASSIUM 4.2 mmol/L (3.5-5.1)
[2019-12-03 06:38] LABS: CREATININE 2.3 mg/dL (0.7-1.3)
[2019-12-03 11:17] LABS: URINE CREATININE-RANDOM* 59.7 mg/dL
--- NOTE | 2019-12-03 18:41 | NUR ---
PT CARE ASSUMED AT 0700. ASSESSMENTS CHARTED. MEDICATION CHARTED. AFIB; IMPLANTED DEFIBRILLATOR. EF 20-25% REJ IV; RH IV. BILAT CALF WOUND CARE PERFORMED. CARDIZEM D/C AT 1015; AMIODARONE STARTED. ONE INCIDENT OF BOWEL INCONTINENCE.
[2019-12-04] VITALS (9 sets, daily range): BP systolic 95–136; BP diastolic 62–114
--- NOTE | 2019-12-04 04:10 | NUR ---
CARE ASSUMED 1900. PT ALERT AND ORIENTED. LITTLE HYPOTENSIVE BUT BETTER WITH ALBUMIN. PT C/O ABDOMINAL PAIN. PT IS ALLERGIC TO CODEINE. NPO NOTIFIED. 1 DOSE OF FENTANYL GIVEN. PT REPORTS FENTNYL MADE HIM NAUSEOUS. MINIMAL EMESIS . PT REPORTS PAIN DOES NOT GET ALLEVIATED BY PAIN MEDICATION. WILL CONTINUE TO MONITOR AND FOLLOW POC. NO FURTHER CONCERNS.
[2019-12-04 06:27] LABS: ALBUMIN 4.9 g/dL (3.4-5.0); CALCIUM 9.4 mg/dL (8.5-10.1); CREATININE 2.3 mg/dL (0.7-1.3); PHOSPHORUS 3.3 mg/dL (2.5-4.9); POTASSIUM 4.8 mmol/L (3.5-5.1)
--- NOTE | 2019-12-04 08:22 | EKG ---
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: REGLA : 1975 Requested By: Jareth Christianson Order Number: [id number] MD: Jareth Christianson Measurements Intervals [place] Rate: 97 P: [place]: QRS: -49 QRSD: 168 T: 126 QT: 439 QTc: 558 Interpretive Statements Atrial flutter IVCD, consider atypical RBBB Left anterior hemiblock Compared to ECG 12/01/2019 11:57:30 No significant change was found Electronically Signed On 12-04-2019 8:22:17 CDT by Jareth Christianson [email or web address] <ELECTRONICALLY SIGNED> By: Jareth Christianson MD, [facility] 12/04/19821 9 9 Jareth Christianson MD, [facility] /EPI
--- NOTE | 2019-12-04 09:41 | NUR ---
Nutrition: Pt assessed due to BMI 40.3, extreme class 3 obesity. Admit with low BP/HR, several recent hospital stays. PMH: DM diet controlled, CKD3, CHF, NICM, afib, S/P ICD. Possible medication noncompliance contributing to current issue. A1C 6.1. BG controlled. PO intake excellent. Issues related to N/V noted yesterday-refused 2 meals. Previously refused consent for lap choly. Nutrition education materials provided to pt on heart healthy diet 2 admits ago. Right calf ulcer present. Will follow for improved N/V, intake trends but consider low nutrition risk at present.
--- NOTE | 2019-12-04 12:22 | NUR ---
Chart reviewed and case opened to follow for dc planning. Tobacco Packer visited with the pt at bedside. He is A&ox4 and does not make eye contact. He reports living with his mother in [facility] near the hospital. They do not have any steps and everything is on one level. He reports being indep with gait and adl's and his sister provides him transportation. He has had four admissions in the past few weeks. The pt is disabled and on [place] medicaid. It is noted that he recently moved from [place] and denies having a PCP. [facility] discussed. He will call for a new pt appointment at md. If HH RN is recommended and pt agreeable; the hospitalist would need to follow for a few visits. Will make referral to [facility] line as well. Pt denies any dc needs and was concerned about getting a film writer and BSC. OT to discuss options with him but he notes he has been looking at adaptive items on [employer] and can order as they are not covered by his ins plan. [employer] info provided on the pt's dc instructions. Will see how he does with therapy. Plans noted for WOODY with cardioversion tomorrow. The pt reports he has home o2 in place and uses it PRN. Will follow along.
--- NOTE | 2019-12-04 16:56 | NUR ---
FAXED REFERRAL TO [facility] HH SPOKE WITH LANDY IN INTAKE THEY RECEIVED REFERRAL AND WILL REVIEW. MADELAINE (CARLOS) IS GOING TO SEE IF DR CASTELLON WILL FOLLOW FOR HH AT DISCHARGE.
--- NOTE | 2019-12-04 19:38 | NUR ---
ASSUMED CARE AT CHANGE OF SHIFT. ALERT X4, COMPLIANT WITH CARES. DENIES PAIN, DENIES SOB, DENIES NAUSEA. NPO TONIGHT FOR CARDIOVERSIONA AND WOODY IN THE MORNING. CONSENT SIGNED. FAMILY WOULD LIKE A CALL WHEN PT LEAVES FOR PROCEDURE. CONTINUES ON AMIO DRIP PER ORDERS. WOUND DRESSING CHANGED PER ORDERS. COVID SWAB COMPLETED. CALL LIGHT AND PERSONAL ITEMS IN REACH.
[2019-12-05] VITALS (7 sets, daily range): BP systolic 78–100; BP diastolic 52–72
--- NOTE | 2019-12-05 04:37 | NUR ---
AT 0425 OR SO PATIENT WAS COMPLAINING OF DIZZINESS AND LIGHTHEADEDNESS. I TOOK PATIENT'S BP AND IT WAS HYPOTENSIVE AT 80/53. I STOPPED THE AMIODARONE GTT AND CALLED JANNA. A BOLUS OF NS WAS ORDERED. THIS WAS STARTED AT 0435. WILL CONTINUE TO MONITOR.
[2019-12-05 05:51] LABS: ALBUMIN 4.8 g/dL (3.4-5.0); CALCIUM 9.7 mg/dL (8.5-10.1); CREATININE 3.1 mg/dL (0.7-1.3); PHOSPHORUS 3.7 mg/dL (2.5-4.9); POTASSIUM 4.2 mmol/L (3.5-5.1)
--- NOTE | 2019-12-05 10:55 | HC ---
[facility] [place] [address] [address] CONSULTATION Name: ИРИНА GARDUNO Room #: 202-P ADM IN M.R.#: [id number] Admission: 12/01/19 Attend Phys: Jenny Owens MD Discharge: Date of : 75 Report #: [id number] THIS REPORT FOR: cc: FAM - No family physician/PCP FAM - No family physician/PCP Durga Leos MD ~ DATE OF SERVICE: 12/02/2019 CHIEF COMPLAINT: Venous ulcers, bilateral lower extremities. HISTORY OF PRESENT ILLNESS: This is a 44-year-old male patient who was admitted to the hospital again after multiple recent hospitalizations with atrial fibrillation with rapid ventricular response. The patient is currently hypotensive. I have been asked to see him with regard to ongoing wound care. I had seen him briefly on the last 2 hospitalizations, the first of which he did not allow me to assess him. He has had venous ulcers and lower extremity edema. Additionally, he had a surgery on his left elbow back in June for some type of infectious process, sutures were left in place and never been removed and the skin has mostly grown over them and I have been asked to see him again for wound care. PAST MEDICAL HISTORY: Positive for history of gallbladder disease, morbid obesity, hyperkalemia, chronic kidney disease stage 3, atrial fibrillation with a rapid ventricular response, nonischemic cardiomyopathy with an ejection fraction of 25-30%. He is status post AICD placement in 2002, history of hypertension, diet-controlled diabetes and history of the left elbow infection, status post incision or drainage. CURRENT MEDICATIONS: Include Xarelto, Cardizem, Pacerone, Coreg, Entresto, Aldactone, K-Dur, Lasix, metolazone, famotidine. ALLERGIES: CODEINE. SOCIAL HISTORY: Negative for alcohol or tobacco use. FAMILY HISTORY: Noncontributory. REVIEW OF SYSTEMS: CONSTITUTIONAL: The patient denies fever, chills, recent weight loss. NEUROLOGICAL: The patient denies focal weakness, numbness or tingling. EYES: The patient denies visual changes, redness, or drainage. ENT: The patient denies earache, nasal drainage, sore throat. CARDIOVASCULAR: The patient denies chest pain, palpitations or diaphoresis. PULMONARY: Complains of mild cough and mild shortness of breath. [address] [address] CONSULTATION Name: ИРИНА GARDUNO Room #: 202-P [facility] IN M.R.#: [id number] Admission: 12/01/19 Attend Phys: Jenny Owens MD Discharge: Date of : 75 Report #: [id number] hemoptysis. GASTROINTESTINAL: The patient denies nausea, vomiting, diarrhea or abdominal pain. ORTHOPEDIC: The patient does have some pain and swelling of his extremities as well as he has some chronic pain and irritation in his left elbow region. Other systems in a 14-point review of systems are negative. PHYSICAL EXAMINATION: VITAL SIGNS: At this time include temperature 36.7, pulse 101, respiratory rate 18, blood pressure 113/69. GENERAL: This is a somewhat chronically ill-appearing male patient who appears to be in minimal distress. HEENT: Head normocephalic. Nose and throat are clear. NECK: Supple. LUNGS: Diminished. HEART: Irregular without murmur. ABDOMEN: Soft and bowel sounds present. EXTREMITIES: Lower extremities demonstrate 2-3+ edema. He has venous stasis dermatitis, bilateral lower extremities, open venous ulcerations to his bilateral feet and toes, none of which are infected. Examination of the left elbow demonstrates some sutures in place. The tails are barely sticking out, but knots are buried. The area is mildly tender, but it is not overtly infected. There is no fluctuance. NEUROLOGIC: The patient is alert and oriented. LABORATORY STUDIES: Include sodium 136, potassium 4.2, chloride 100, CO2 of 23, BUN 67, creatinine 4.2, glucose 90. CLINICAL IMPRESSION: 1. Venous ulcerations, bilateral feet and toes. 2. Venous stasis dermatitis, bilateral lower extremities. 3. Congestive heart failure with lower extremity edema. 4. History of surgical procedure of the left elbow with sutures that are mostly covered with skin. 5. Type 2 diabetes mellitus, diet controlled. 6. Atrial fibrillation with rapid ventricular response. 7. Medical noncompliance. RECOMMENDATIONS: At this point in time, we will recommend topical gentamicin ointment and Xeroform gauze to the open ulcerations. Recommend AmLactin to the lower legs and feet as a moisturizer. Recommend compression from toes to knees with Kerlix and Guille wraps daily. Elevation of the legs whenever possible. I have discussed with him the need to remove the sutures in his left elbow. I have advised that we use a local anesthetic injected into the area and to remove [facility] [address] [place] [address] CONSULTATION Name: ИРИНА GARDUNO Room #: 202-P [facility] IN M.R.#: [id number] Admission: 12/01/19 Attend Phys: Jenny Owens MD Discharge: Date of : 75 Report #: [id number] the sutures. He is not willing to do so. He says he will allow me to remove the tails of the sutures by clipping them off at the skin level; however, I do not think that would be advisable making them more difficult to retrieve later on. I recommend continued nutritional support. I appreciate being asked to see him in consultation. <ELECTRONICALLY SIGNED> By: Durga Leos MD 12/05/19 1055 1849 [id number] Durga Leos MD /nt
--- NOTE | 2019-12-05 13:17 | TEE ---
[facility] [place] [address] TRANSESOPHAGEAL ECHOCARDIOGRAM Name: ИРИНА GARDUNO Room #: 202-P ADM IN M.R.#: [id number] Admission: 12/01/19 Attend Phys: Jenny Owens MD Discharge: Date of : 75 Report #: [id number] THIS REPORT FOR: cc: FAM - No family physician/PCP FAM - No family physician/PCP Jareth Christianson MD [facility] ~ APPROVED REPORT Study performed: 12/05/2019 11:57:16 EXAM: Transesophageal Echocardiogram with Doppler and Cardioversion Patient Location: In-Patient Room #: 202 BSA: 2.57 HR: 104 bpm BP: 97/63 mmHg Rhythm: Atrial Fibrillation Other Information Study Quality: Good Indications Atrial Fibrillation Cardioversion. Hx: ICD, CHF, CM, HTN. Procedure After obtaining informed consent, patient underwent transesophageal echo in the [facility]. Type of Sedation : Conscious Sedation Sedation was administered by JAEL Bender. Sedation was achieved intravenously with: Versed (6) Transesophageal probe was inserted and advanced into esophagus without difficulty by Jareth Christianson MD. Echo enhancement indication: R/O Septal defect. Echo enhancement agent administered: Agitated Saline The WOODY was performed without complications. Synchronized Cardioversion attempted: Successful Synchronized Cardioversion acheived with 120 Joules after 1 attempt(s). Rhythm following Synchronized Cardioversion: Normal Sinus Rhythm Throughout the procedure, the blood pressure, pulse oximetry, cardiac rhythm, and rate were monitored. [facility] [address] [place] [address] TRANSESOPHAGEAL ECHOCARDIOGRAM Name: ИРИНА GARDUNO Room #: 202-P [facility] IN ..#: [id number] Admission: 12/01/19 Attend Phys: Jenny Owens, Discharge: Date of : 75 Report #: [id number] The patient tolerated the procedure without adverse effects. Recovery from conscious sedation was uneventful and vital signs were stable. Left Ventricle Left ventricle is severely dilated. There is global hypokinesis of the left ventricle. There is normal left ventricular wall thickness. Left ventricular systolic function is severely decreased. LVEF is 25-30%. Right Ventricle Right ventricle is dilated. Right ventricle is hypokinetic. Device lead is present in the right ventricle. Atria Biatrial enlargement. No thrombus is visualized in the left atrium or appendage. No shunting noted with contrast bubble injection. Aortic Valve The aortic valve is normal in structure. No aortic regurgitation is present. There is no aortic valvular stenosis. Mitral Valve Failure of mitral leaflets to coapt. Severe mitral regurgitation. Tricuspid Valve Severe tricuspid regurgitation. Pulmonic Valve The pulmonary valve is normal in structure. Mild pulmonic regurgitation. Great Vessels The aortic root is normal in size. The ascending aorta is normal. IVC is normal in size and collapses >50% with inspiration. Pericardium There is no pericardial effusion. <Conclusion> Left ventricular systolic function is severely decreased. There is global hypokinesis of the left ventricle. LVEF is 25-30%. Biatrial enlargement. [facility] [address] [place] [address] TRANSESOPHAGEAL ECHOCARDIOGRAM Name: ИРИНА GARDUNO Room #: 202-P ADM IN M.R.#: [id number] Admission: 12/01/19 Attend Phys: Jenny Owens, Discharge: Date of : 75 Report #: [id number] No thrombus is visualized in the left atrium or appendage. No shunting noted with contrast bubble injection. The aortic valve is normal in structure. No aortic regurgitation or stenosis Failure of mitral leaflets to coapt. Severe mitral regurgitation. There is no pericardial effusion. Successful cardioversion of atrial flutter to sinus rhythm following a single 120 J biphasic synchronous shock <ELECTRONICALLY SIGNED> By: Jareth Christianson MD, FACC 12/05/191316 16 16 Jareth Christianson MD, FACC /INF
--- NOTE | 2019-12-05 15:36 | EKG ---
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 : 1975 Requested By: Jareth Christianson Order Number: [id number] MD: Abhijit Palomo Measurements Intervals [place] Rate: 89 P: CA: QRS: -62 QRSD: 173 T: 112 QT: 460 QTc: 560 Interpretive Statements Atrial flutter/afib IVCD, consider atypical RBBB Abnormal T, consider ischemia, lateral leads Compared to ECG 12/04/2019 08:00:18 T-wave abnormality now present Possible ischemia now present Electronically Signed On 12-05-2019 15:36:41 CDT by Abhijit Palomo [email or web address] <ELECTRONICALLY SIGNED> By: Abhijit Palomo MD, FACC 12/05/19 1536 145 145 Abhijit Palomo MD, FACC /EPI
--- NOTE | 2019-12-05 18:25 | NUR ---
ASSESSMENT CHARTED - MEDS PER APR - PT HAD AMMIO TURNED DOWN THIS AM ORDERED BY DOCTOR - TOKL DIET AND FLUIDS. UP ON THE SIDE OF THE BED - AMBULATED TO THE BATHROOM - USED THE BSC, HAD A BM THIS SHIFT. NO CO'S OF PAIN OR NAUSEA - PT HAD WOODY AND CARDIOVERSION THIS SHIFT - PT BACK TO UNIT AND REPORTED HE WAS IN SR - CHECKING MONITOR PATIENT APPEARED TO BE HAVING SOME SINUS BEATS BUT ALSO APPEARED TO BE IN A FIB. OBTAINED EKG - A FLUTTER - CALLED DR MEDINA OFFICE - SPOKE WITH NURSE AND INFORMED OF WHAT WAS OCCURING - SHE STATED SHE WOULD LET KNOW AND HE WOULD CALL BACK IF NECCESARY - HAVE NOT HEARD FROM [facility] CALL PLACED AT 1551. PT WITH ACCESS CODE TO MONITOR THAT HE WEARS - PT VERY FREQUENTLY USING CODE TO ACCESS MONITOR AND SEE HEART RATE THEN CALLS TO NURSE IF HE THINKS IT IS TOO HIGH OR LOW. SITTING AT BEDSIDE EATING DINNER AT THE PRESENT TIME.
[2019-12-06 01:02] VITALS: BP 97/66
[2019-12-06 04:00] VITALS: BP 91/56
[2019-12-06 05:51] LABS: ALBUMIN 4.6 g/dL (3.4-5.0); CALCIUM 9.2 mg/dL (8.5-10.1); CREATININE 2.9 mg/dL (0.7-1.3); PHOSPHORUS 4.1 mg/dL (2.5-4.9); POTASSIUM 4.7 mmol/L (3.5-5.1)
[2019-12-06 07:22] VITALS: BP 88/53
--- NOTE | 2019-12-06 11:06 | NUR ---
Case discussed with the care team. Pt had failed cardioversion yesterday and continues on amnio gtt. Possible pacemaker on Monday. No weekend dc anticipated. Referral sent to [facility] for RN visits at [facility]. They can accept if the hospitalist will follow until pt can get into [facility] as he does not have a pcp.
[2019-12-06 11:40] VITALS: BP 93/47
[2019-12-06 15:21] VITALS: BP 94/39
--- NOTE | 2019-12-06 17:58 | NUR ---
RECEIVED PT'S CARE AROUND 07; PT. SITTIN ON THE BED; ALERT; DURING AM ASSESSMENT PT. AOX4; REFUSED PO ANTIBIOTIC; ST. "I DO NOT KNOW WHY ARE THEY GIVING IT TO ME"; EDUCATED ABOUT MEDICATION BASED ON DR. DUEÑAS NOTES; DUE TO BLE INFECTION; ST. "I TOLD THEM I DO NOT HAVE A INFECTION ON MY LEGS"; ASKED WHAT REASONS PT. HAVE TO BELIEVE THAT DOES NOT HAVE A INFECTION; NOT ANSWER BACK; EDUCATED ABOUT FALL PRECAUTIONS; REFUSED BED ALARM ON; UNCOOPERATIVE; TRANSFER FROM BED TO BEDSIDE COMMODE WITHOUT CALLING; WOUND CARE PERFORMED; AFIB ON THE MONITOR; MONITORING HR ON THE MONITOR AT ALL TIMES; MANTAIN DIRECTOR OF MIDWIFERY/STAFF MIDWIFE ON HAND AT ALL TIMES; ASSESSMENT CHARGED; FOLLOWING POC; WILL PASS ON REPORT;
[2019-12-06 20:00] VITALS: BP 82/54
[2019-12-07 03:55] VITALS: BP 100/58
--- NOTE | 2019-12-07 06:09 | NUR ---
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 PT RESTED WELL THROUHGOUT HOURLY ROUNDS.
[2019-12-07 07:28] VITALS: BP 96/55
[2019-12-07 08:09] LABS: ALBUMIN 4.3 g/dL (3.4-5.0); CALCIUM 9.3 mg/dL (8.5-10.1); CREATININE 2.5 mg/dL (0.7-1.3); POTASSIUM 4.4 mmol/L (3.5-5.1); TOTAL BILIRUBIN 1.7 mg/dL (0.2-1.0); TOTAL PROTEIN 8.9 g/dL (6.4-8.2)
[2019-12-07 08:15] VITALS: BP 95/55
--- NOTE | 2019-12-07 09:56 | NUR ---
GOING TO PACEMAKER MONDAY OR MON.
[2019-12-07 11:35] VITALS: BP 101/68
--- NOTE | 2019-12-07 13:55 | NUR ---
PT'S LEG DRESSING CHANGES DONE, RIGHT LET DRY SKIN, TOE WOUND ALMOST APPROXIMATED, LEFT LEG BEAVER AND TOE WOUNDS CLEANED, DRESSED PER MD ORDERS, PT ABLE TO GET UP TO BSC ON OWN, WHEN GIVING HIS AM MEDS, HE REFUSED HIS ABX, "I DON'T KNOW WHY YOU'RE STILL GIVING THIS TO ME, I'M NOT TAKING IT!" MED RETURNED. ANTICIPATING PACEMAKER PLACMENT ON MONDAY, HAS NO QUESTIONS ABOUT THE PROCEDURE.
[2019-12-07 15:29] VITALS: BP 93/58
[2019-12-07 19:00] VITALS: BP 124/57
[2019-12-08 05:00] VITALS: BP 92/64
--- NOTE | 2019-12-08 06:40 | NUR ---
ASSUMED CARE OF PATIENT AT 1900; AOX4; ASSESSMENTS CHARTED; AFIB ON THE MONITOR/INTERMITTENT ELEVATED HEART RATE; EXTREMELY ANXIOUS ABOUT HEART RATE/OXYGEN PRN; REFUSED DAILY WEIGHT; REFUSED ANTIBIOTICS; PLAN IS TO IMPLANT PACEMAKER ON MONDAY; WILL CONTINUE TO MONITOR
[2019-12-08 08:02] VITALS: BP 85/53
[2019-12-08 11:52] VITALS: BP 88/54
[2019-12-08 16:01] VITALS: BP 87/61
--- NOTE | 2019-12-08 16:20 | NUR ---
ASSUMED CARE AT CHANGE OF SHIFT. ALERTX4, PERFERS TO SIT ON SIDE OF BED AND LEANS OVER BEDSIDE TABLE. REPORTS HE IS MOST COMFORTABLE IN THIS POSTION. REPORTED TO PHYSICIAN PT DECLINED ANTIBIOTICS AND FEMOTIDINE THIS MORNING WITH ODERS TO DC MEDS. CONTINUES ON AMIODARONE DRIP PER ORDES. EPISODE OF ELEVATED HEART RATE FROM 120'S TO 130'S WITH ONE NOTED RATE OF 151 NOT SUSTAINED.ITS NOTED PATIENT IS NOT DOING ANYTHING UNUSUAL WHEN HEART RATE BECOMES TACKY. ON AMIODARONE DRIP FOR AFIB. PLANS FOR PACEMAKER WITH DR AVILA ON MONDAY. MOTHER STEPH WILL BE ON THE DESIGNATED VISITOR LIST FOR PROCEDURE DAY, CHANGED BACK TO SUSAN STARTING ON MONDAY. PT IS AWARE OF CHANGE. PT FOLLOWING THE FLUID RESTRICTION 700ML NOTED AT THIS TIME. ROBERT URINE. NO BM NOTED AT THIS TIME. DENIES PAIN, DENIES SOB. PERSONAL ITEMS IN REACH. CALLS APPROPRIATARCHIE
[2019-12-08 19:29] VITALS: BP 89/61
[2019-12-08 22:33] VITALS: BP 95/67
[2019-12-09 04:16] VITALS: BP 88/57
--- NOTE | 2019-12-09 05:01 | NUR ---
ASSUME CARE 1900. PT STABLE. BP RUNS SOFT WITH MAP > 60. ON AMIO DRIP. HR WITHIN [id number] WITH EPISODES OF EXTREME TACHY. PT ASSYMPTOMATIC. ASSESSMENT AAS CHARTED. NO DISTRESS NOTED. PLAN IS FOR A PACEMAKER PLACEMENT TODAY. NPO SINCE MIDNIGHT. WILL CONTINUE TO MONITOR AND FOLLOW WIHT POC
[2019-12-09 07:35] VITALS: BP 92/53
[2019-12-09 09:47] LABS: HEMATOCRIT 35.9 % (42.0-52.0); HEMOGLOBIN 11.7 gm/dL (14.0-18.0); MCH 30.5 pg (26.0-34.0); MCHC 32.7 g/dL (28.0-37.0); MCV 93.4 fL (80.0-100.0); RBC 3.85 mil/uL (4.50-6.00); RDW 15.8 % (10.5-14.5); WBC 6.1 thou/uL (4.0-11.0)
[2019-12-09 09:54] LABS: INR 1.5; PROTIME 15.4 Seconds (9.3-11.4)
[2019-12-09 09:56] LABS: CALCIUM 9.7 mg/dL (8.5-10.1); CREATININE 2.1 mg/dL (0.7-1.3)
[2019-12-09 10:13] LABS: ABSOLUTE NEUTROPHILS 4.5 thou/uL (1.4-8.2); PLATELET COUNT 113 thou/uL (150-400)
[2019-12-09 12:27] LABS: BE(vivo) -3.1 mmol/L (-2 to +3); HCO3 21.3 mmol/L (22.0-26.0); PCO2 35.7 mmHg (35.0-45.0); PO2 326.6 mmHg (80.0-100.0); pH 7.393 (7.360-7.450); sO2 99.7 % (92.0-98.0)
[2019-12-09 15:30] VITALS: BP 109/93; BP 109/96
--- NOTE | 2019-12-09 16:59 | NUR ---
SEE CARDIOLOGY NOTES ON PROCEDURE THIS AM. BIV PACER EXCHANGE ABORTED, PT BACK TO ROOM. HR IN 130S-150S, RESTARTED AMIO GTT, CALLED CAROL AND GAVE 300MG BOLUS AND INCREASED GTT TO 1ML/HR, HR NOW DOWN TO 111. REPORT CALLED TO JAEL HALL AT [facility] IN PREP FOR TRANSFER. PT AWARE AND AGREES TO TRANSFER. WILL MONITOR
--- NOTE | 2019-12-09 17:37 | NUR ---
Patient with need to transfer to [facility]. Information sent to /[facility] Akash. Dr Mohan sp with [facility] they have bed avail. Emtalla form signed. RN called report. Patients mom at bedside and given address to [facility] and made aware of visitor hours at [facility]. Accepting phys Dr Holloway. Room 516. [facility] for 1829. Chart to be copied. No further needs.
== END 2019-12-09 18:21 | disposition short-term general hospital (02) | DRG 308 ==
LOC: ER 04:57 → EROBS 05:58 → 2N 05:58
PROVIDERS: Emergency Medicine; Hospitalist; Internal Medicine; Internal Medicine Cardiovascular Disease; ADMIT Internal Medicine; ATTEND Internal Medicine
DX: I48.91 Unspecified atrial fibrillation (principal); N17.0 Acute kidney failure with tubular necrosis; I13.0 Hypertensive heart and chronic kidney disease with heart failure and stage 1 through stage 4 chronic kidney disease, or unspecified chronic kidney disease; I50.22 Chronic systolic (congestive) heart failure; I42.8 Other cardiomyopathies; I87.2 Venous insufficiency (chronic) (peripheral); D69.6 Thrombocytopenia, unspecified; I48.92 Unspecified atrial flutter; E66.01 Morbid (severe) obesity due to excess calories; Z20.828 Contact with and (suspected) exposure to other viral communicable diseases; E11.22 Type 2 diabetes mellitus with diabetic chronic kidney disease; N18.30 Chronic kidney disease, stage 3 unspecified; Z68.28 Body mass index [BMI] 28.0-28.9, adult; Z95.810 Presence of automatic (implantable) cardiac defibrillator; Z79.899 Other long term (current) drug therapy; Z88.5 Allergy status to narcotic agent; Z87.891 Personal history of nicotine dependence; Z79.01 Long term (current) use of anticoagulants; Z91.14 Patient's other noncompliance with medication regimen
CPT/HCPCS: 10081

== ENCOUNTER 2020-04-06 15:36 | Inpatient (IN) | payer OTHER ==
[~2020-04-06] VITALS: Ht 185.4 cm; Wt 129.3 kg
--- NOTE | ~2020-04-06 | EMS ---
[address] [address] EMS Patient Care Report Name: ИРИНА GARDUNO Room #: 170-17 ADM IN M.R.#: [id number] Admission: 04/06/20 Attend Phys: Dale Ivy MD Discharge: Date of : 75 Report #: [id number] THIS REPORT FOR: //name// Report Transmitted: 04/07/2020 04:00 EMS Care Summary [place], [place]/[facility] Incident [id number] @ 04/06/2020 15:02 Incident Location [address] [place] [address] Patient ИРИНА GARDUNO Male, 44 Years 1975 Patient Address [address] [place] [address] Patient History Cardiac Arrythmia,Diabetes,Pacemaker/AICD,Morbid Obesity,Atrial Fibrillation, Patient Allergies Acetaminophen,Hydrocodone, Patient Medications Furosemide, Tramadol, Amlodipine, Amiodarone, Chief Complaint palpitations Disposition Transported No Lights/[place] Reason Heart Problems/AICD Transported To [facility] Narrative Arrived to find pt standing in living room. Pt stated about 30 minutes ago he started to feel palpitations in his chest. Initially he hit his medical alarm button but he forgot to change his address in their system they called back. Pt [facility] [address] [place] [address] EMS Patient Care Report Name: ИРИНА GARDUNO Room #: 170-17 ADM IN Kwadwo#: [id number] Admission: 04/06/20 Attend Phys: Dale Ivy MD Discharge: Date of : 75 Report #: [id number] is AOx3, GCS 15 and in no distress. Pt states he has no chest pain but feels palpitations that started when he laid down for a nap. Pt states he does not feel his defibrillator going off. Pt sits down in a chair and is placed on 3-lead, which shows wide QRS and irregular rate. Pt states he has a history of A-fib. Pt placed on 12-lead which showed bbb and wide qrs. Pt would go in and out of A-fib but remained out of a-fib in a steady rate more than not. Pt stood and sat on cot where he was secured with cot straps. Pt placed in surgical mask. Pt placed in back of unit and transported without incident. Care to RN, rm 5. Initial Vitals @15:16P: 68, @15:15P: 73,BP: 123/84,SpO2: 97, @15:13P: 71,R: 18,BP: 119/83,Pain: 0/10,GCS: 15,Glucose: 170,SpO2: 96,Revised Trauma: 12, @15:27P: 70,CO: 2,SpO2: 96, @15:18P: 73,CO: 2,SpO2: 96, Assessments @15:13MENTAL:Time Oriented,Person Oriented,Place Oriented,Event Oriented,SKIN:HEENT:Head/Face: No Abnormalities,Neck/Airway: No Abnormalities,LUNG SOUNDS:General: No Abnormalities,Left Upper: No Abnormalities,Right Upper: No Abnormalities,Left Lower: No Abnormalities,Right Lower: No Abnormalities,ABDOMEN:General: No Abnormalities,Left Upper: No Abnormalities,Right Upper: No Abnormalities,Left Lower: No Abnormalities,Right Lower: No Abnormalities,PELVIS//GI:EXTREMITIES:Left Leg: Other,Right Leg: Abnormal Pulse,Left Arm: Other,Capillary Refill: Right Upper: < 2 Sec,Right Arm: No Abnormalities,PULSE:Radial: 2+ Normal,NEURO: Impression Cardiac arrhythmia/dysrhythmia Procedures @15:1612-Lead ECGResponse: UnchangedSucceeded@15:13ALS AssessmentResponse: UnchangedSucceeded@15:153-Lead ECGResponse: UnchangedSucceeded@15:30Saline Lock 0cc (22 ga) Site: Hand-RightResponse: UnchangedFailed Timeline 15:02,Call Received 15:02,Dispatch Notified 15:02,Dispatched 15:03,En Route 15:07,On Scene 15:12,At Patient 15:13,ALS Assessment,Response: UnchangedSucceeded, 15:13,BP: 119/83 M,PULSE: 71,RR: 18 R,SPO2: 96 Ox,ETCO2: ,B,PAIN: 0,GCS: [address] [address] EMS Patient Care Report Name: ИРИНА GARDUNO Room #: 170-17 ADM IN M.R.#: [id number] Admission: 04/06/20 Attend Phys: Dale Ivy MD Discharge: Date of : 75 Report #: [id number] 15, 15:15,3-Lead ECG,Response: UnchangedSucceeded, 15:15,BP: 123/84 M,PULSE: 73,RR: R,SPO2: 97 Ox,ETCO2: ,BG: ,PAIN: ,GCS: , 15:16,12-Lead ECG,Response: UnchangedSucceeded, 15:16,BP: / M,PULSE: 68,RR: R,SPO2: Ox,ETCO2: ,BG: ,PAIN: ,GCS: , 15:18,BP: / M,PULSE: 73,RR: R,SPO2: 96 Ox,ETCO2: ,BG: ,PAIN: ,GCS: , 15:27,BP: / M,PULSE: 70,RR: R,SPO2: 96 Ox,ETCO2: ,BG: ,PAIN: ,GCS: , 15:29,Depart Scene 15:30,Saline Lock 0cc 22 ga Site: Hand-Right,Response: UnchangedFailed, 15:33,At Destination 15:44,Call Closed Disclaimer v1.1 Copyright 2020 [employer] This EMS Care Summary contains data elements from the applicable legal record (which may be displayed differently). It is designed to provide pertinent information for the following purposes: continuity of care, clinical quality, and state data reporting. The complete legal record is available to ED staff and administrators of the receiving hospital in ES's Patient Tracker. All data is provided "as is."
[2020-04-06 15:37] VITALS: BP 106/70
--- NOTE | 2020-04-06 16:11 | EKG ---
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 : 1975 Requested By: Anselmo Chacon Order Number: [id number] MD: Abhijit Palomo Measurements Intervals [place] Rate: 70 P: 68 NH: 214 QRS: -64 QRSD: 197 T: 109 QT: 519 QTc: 561 Interpretive Statements Sinus rhythm Borderline prolonged NH interval Left atrial enlargement IVCD, consider atypical RBBB Abnormal T, consider ischemia, lateral leads Compared to ECG 12/05/2019 14:51:12 Atrial abnormality now present Atrial flutter no longer present T-wave abnormality still present Possible ischemia still present Electronically Signed On 04-06-2020 16:11:31 TELECOMMUNICATIONS ADMINISTRATOR by Abhijit Palomo [email or web address] <ELECTRONICALLY SIGNED> By: Abhijit Palomo MD, [facility] 04/06/20 1611 1549 1549 Abhijit Palomo MD, [facility] /EPI
[2020-04-06] MEDS ORDERED: ASA81BEC PO (16:23)
[2020-04-06 16:31] LABS: ABSOLUTE NEUTROPHILS 4.6 thou/uL (1.4-8.2); BASOPHILS 0.7 % (0.0-2.0); EOSINOPHILS 2.1 % (0.0-3.0); HEMATOCRIT 33.5 % (42.0-52.0); LYMPHOCYTES 8.2 % (24.0-44.0); MCH 29.9 pg (26.0-34.0); MCV 90.7 fL (80.0-100.0); MONOCYTES 11.5 % (1.0-8.0); POLYS 77.5 % (36.0-66.0); RBC 3.69 mil/uL (4.50-6.00); RDW 17.7 % (10.5-14.5); WBC 6.2 thou/uL (4.0-11.0)
[2020-04-06 16:46] LABS: PLATELET COUNT 128 thou/uL (150-400)
[2020-04-06 17:43] LABS: APTT 28.1 Seconds (24.5-32.8); INR 1.3; PROTIME 14.7 Seconds (9.3-11.4)
[2020-04-06 17:46] LABS: ALBUMIN 3.1 g/dL (3.4-5.0); ANION GAP 5 mmol/L (7-16); BUN 54 mg/dL (7-18); CALCIUM 9.1 mg/dL (8.5-10.1); CHLORIDE 92 mmol/L (98-107); CO2 33 mmol/L (21-32); CREATININE 2.7 mg/dL (0.7-1.3); GLUCOSE 115 mg/dL (74-106); MAGNESIUM 2.7 mg/dL (1.8-2.4); POTASSIUM 3.9 mmol/L (3.5-5.1); SGOT 24 U/L (15-37); SGPT 18 U/L (16-63); SODIUM 130 mmol/L (136-145); TOTAL BILIRUBIN 1.8 mg/dL (0.2-1.0); TROPONIN-I <0.06 ng/mL (<0.06)
[2020-04-06 23:09] VITALS: BP 96/45
[2020-04-07 01:29] VITALS: BP 107/68
--- NOTE | 2020-04-07 03:04 | NUR ---
Lab called at this time regarding troponin. Report that troponin was not resulted because the bar code was not read properly. David reports troponin is re-running.
[2020-04-07 05:09] LABS: HEMOGLOBIN 9.6 gm/dL (14.0-18.0); MCHC 31.9 g/dL (28.0-37.0); MCV 90.8 fL (80.0-100.0); RBC 3.3 mil/uL (4.50-6.00); RDW 17.4 % (10.5-14.5); WBC 6.2 thou/uL (4.0-11.0)
[2020-04-07 05:23] LABS: CALCIUM 8.7 mg/dL (8.5-10.1); CREATININE 2.8 mg/dL (0.7-1.3); POTASSIUM 3.8 mmol/L (3.5-5.1)
--- NOTE | 2020-04-07 08:00 | NUR ---
CARDIOLOGY AT BEDSIDE TO SEE PT
[2020-04-07 08:46] VITALS: BP 112/61
[2020-04-07] MEDS ORDERED: PACERONE 200 M200 M1 PO (13:19)
[2020-04-07] MEDS ORDERED: METOPROLOL SUCC25 M1 PO (13:19)
[2020-04-07] MEDS ORDERED: ACETAMINOPHEN325 M1 PO (13:19)
[2020-04-07] MEDS ORDERED: ISORDIL10 MG PO (13:19)
[2020-04-07] MEDS ORDERED: LASIX 40 MG TAB40 M1 PO (13:19)
[2020-04-07] MEDS ORDERED: HYDRALAZINE 10M10 MG PO (13:19)
[2020-04-07 13:54] VITALS: BP 124/72
== END 2020-04-07 13:55 | disposition home or self-care (01) | DRG 291 ==
LOC: ER 15:36 → EROBS 19:49
PROVIDERS: Emergency Medicine; Nurse Practitioner Family; ADMIT Internal Medicine; ATTEND Internal Medicine
PROC: 4B02XTZ Measurement of Cardiac Defibrillator, External Approach (ICD-10-PCS; principal; 2020-04-06)
DX: I13.0 Hypertensive heart and chronic kidney disease with heart failure and stage 1 through stage 4 chronic kidney disease, or unspecified chronic kidney disease (principal); I50.23 Acute on chronic systolic (congestive) heart failure; I48.20 Chronic atrial fibrillation, unspecified; N18.30 Chronic kidney disease, stage 3 unspecified; E11.22 Type 2 diabetes mellitus with diabetic chronic kidney disease; E78.5 Hyperlipidemia, unspecified; E66.01 Morbid (severe) obesity due to excess calories; I42.8 Other cardiomyopathies; I48.0 Paroxysmal atrial fibrillation; S81.802A Unspecified open wound, left lower leg, initial encounter; S81.801A Unspecified open wound, right lower leg, initial encounter; X58.XXXA Exposure to other specified factors, initial encounter; Z91.14 Patient's other noncompliance with medication regimen; Z79.82 Long term (current) use of aspirin; Z88.5 Allergy status to narcotic agent; Y93.89 Activity, other specified; Y92.89 Other specified places as the place of occurrence of the external cause; Z68.37 Body mass index [BMI] 37.0-37.9, adult; Y99.8 Other external cause status; Z95.810 Presence of automatic (implantable) cardiac defibrillator

== ENCOUNTER 2020-05-28 04:49 | Emergency (ER) | payer OTHER ==
[~2020-05-28] VITALS: Ht 185.4 cm; Wt 155.1 kg
--- NOTE | ~2020-05-28 | EMS ---
[facility] [address] [place] [address] EMS Patient Care Report Name: ИРИНА GARDUNO Room #: REG HENRRY Burkett#: [id number] Admission: 05/28/20 Attend Phys: Discharge: Date of : 75 Report #: [id number] THIS REPORT FOR: //name// Report Transmitted: 05/28/2020 06:14 EMS Care Summary [place], [place]/[facility] Incident [id number] @ 05/28/2020 04:04 Incident Location [address] [place] [address] Patient ИРИНА GARDUNO Male, 44 Years 1975 Patient Address Patient History Congestive Heart Failure (CHF),End Stage Renal Disease (ESRD),Atrial Fibrillation,Type 2 Diabetes, Patient Allergies Acetaminophen, Patient Medications Midodrine, Gabapentin, Unknown, Metoprolol, Epoetin Curt, Isosorbide, Multivitamin, Miralax, Amiodarone, Aspirin, Hydralazine, Furosemide, Chief Complaint ABDOMINAL PAIN Disposition Transported No Lights/[place] Reason Sick Person Transported To [facility] Narrative M30 RECIEVED CALL FOR A 44 YO SICK MALE. M30 ARRIVED ON SCENE WAS MEET AT FRONT DOOR BY FACILITY STAFF AND GIVEN REPORT. REPORT WAS FOLLOWS 44 YO DIALYSIS PT THAT IS DUE FOR DIALYSIS APT TODAY AND ISNT FEELING RIGHT. M30 MOVED PT TO THE COT WITH STAFF ASSISNTANCE. PT WAS BUCKLED INTO COT AND TAKEN TO AMBULANCE [facility] [address] [place] [address] EMS Patient Care Report Name: ИРИНА GARDUNO Room #: REG [facility].Edmundo.#: [id number] Admission: 05/28/20 Attend Phys: Discharge: Date of : 75 Report #: [id number] AND LOADED IN AMBULANCE. VITALS WERE OBTAINED AND MONITORED THROUGHOUT TRANSPORT. PT WAS ASKED AGAIN WHAT CHIEF COMPLAINT IS AND PT WOULD STATE THAT HIS HEAD AND BELLY JUST DIDNT FEEL RIGHT. PT WAS TRANSPORTED TO [facility] AND MOVED FROM AMBULANCE TO HOSPITAL ON COT. PT WAS THEN TRANSFERED OVER TO HOSPITAL BED BY [facility] STAFF AND M30. REPORT WAS GIVEN TO NURSE AND CARE WAS TRANSFERED. Initial Vitals @04:27P: 71,BP: 97/65,SpO2: 95, @04:41P: 48,R: 16,BP: 130/83,Pain: 2/10,CO: 2,SpO2: 95, @04:34P: 51,R: 16,BP: 109/66,Pain: 2/10,GCS: 15,Glucose: 110,SpO2: 93,Revised Trauma: 12, Assessments @04:21MENTAL:Person Oriented,Time Oriented,Event Oriented,Place Oriented,SKIN:HEENT:Head/Face: No Abnormalities,Neck/Airway: No Abnormalities,LUNG SOUNDS:General: Other,Left Upper: No Abnormalities,Right Upper: No Abnormalities,Left Lower: No Abnormalities,Right Lower: No Abnormalities,ABDOMEN:General: Other,Left Upper: No Abnormalities,Right Upper: No Abnormalities,Left Lower: No Abnormalities,Right Lower: No Abnormalities,PELVIS//GI:No Abnormalities,EXTREMITIES:Left Leg: Weakness,Right Leg: Weakness,Capillary Refill: Right Upper: < 2 Sec,Left Arm: No Abnormalities,Right Arm: No Abnormalities,PULSE:Radial: 2+ Normal,NEURO:No Abnormalities, Impression Abdominal Pain Procedures @04:20ALS AssessmentResponse: UnchangedSucceeded@04:21BLS AssessmentResponse: Unchanged Timeline 03:58,Call Received 03:58,Dispatch Notified 04:04,Dispatched 04:05,En Route 04:17,On Scene 04:20,At Patient 04:20,ALS Assessment,Response: UnchangedSucceeded, 04:21,BLS Assessment,Response: Unchanged 04:27,BP: 97/65 M,PULSE: 71,RR: R,SPO2: 95 Ox,ETCO2: ,BG: ,PAIN: ,GCS: , 04:34,BP: 109/66 M,PULSE: 51,RR: 16 R,SPO2: 93 Ox,ETCO2: ,B,PAIN: 2,GCS: 15, 04:38,Depart Scene 04:41,BP: 130/83 M,PULSE: 48,RR: 16 R,SPO2: 95 Ox,ETCO2: ,BG: ,PAIN: 2,GCS: , [facility] [address] [place] [address] EMS Patient Care Report Name: ИРИНА GARDUNO Room #: REG Kwadwo#: [id number] Admission: 05/28/20 Attend Phys: Discharge: Date of : 75 Report #: [id number] 04:46,At Destination 05:04,Call Closed Disclaimer [email or web address] Copyright 2020 [employer] This EMS Care Summary contains data elements from the applicable legal record (which may be displayed differently). It is designed to provide pertinent information for the following purposes: continuity of care, clinical quality, and state data reporting. The complete legal record is available to ED staff and administrators of the receiving hospital in [employer]'s Patient Tracker. All data is provided "as is."
[~2020-05-28 04:49] MED LIST changes: +ACETAMINOPHEN325 M1 PO; +ASA81BEC PO; +HYDRALAZINE 10M10 MG PO; +ISORDIL10 MG PO; +METOPROLOL SUCC25 M1 PO
[2020-05-28] MEDS ORDERED: ISOSORBIDE DN 110 M1 PO (05:06)
[2020-05-28] MEDS ORDERED: NEURONTIN100 MG PO (05:06)
[2020-05-28] MEDS ORDERED: MIDODRINE HCL 55 M1 PO (05:08)
[2020-05-28 05:13] LABS: ABSOLUTE NEUTROPHILS 6.2 thou/uL (1.4-8.2); BASOPHILS 0.2 % (0.0-2.0); EOSINOPHILS 0.4 % (0.0-3.0); HEMATOCRIT 29.5 % (42.0-52.0); HEMOGLOBIN 9.6 gm/dL (14.0-18.0); LYMPHOCYTES 5.2 % (24.0-44.0); MCH 29.8 pg (26.0-34.0); MCHC 32.6 g/dL (28.0-37.0); MCV 91.3 fL (80.0-100.0); MONOCYTES 7.9 % (1.0-8.0); PLATELET COUNT 41 thou/uL (150-400); POLYS 86.3 % (36.0-66.0); RBC 3.23 mil/uL (4.50-6.00); RDW 19.6 % (10.5-14.5); WBC 7.2 thou/uL (4.0-11.0)
[2020-05-28 05:18] LABS: CALCIUM 8.7 mg/dL (8.5-10.1); CREATININE 7.8 mg/dL (0.7-1.3); POTASSIUM 4.5 mmol/L (3.5-5.1)
[2020-05-28 05:25] LABS: ALBUMIN 3.1 g/dL (3.4-5.0); TOTAL BILIRUBIN 2.1 mg/dL (0.2-1.0); TOTAL PROTEIN 8.4 g/dL (6.4-8.2)
[2020-05-28 06:25] LABS: INR 1.38; PROTIME 14.8 Seconds (9.3-11.4)
--- NOTE | 2020-05-28 07:11 | EKG ---
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 : 1975 Requested By: Eugenio Schuster Order Number: [id number] MD: Abhijit Palomo Measurements Intervals [place] Rate: 50 P: 51 MT: 293 QRS: -54 QRSD: 212 T: 121 QT: 559 QTc: 510 Interpretive Statements Sinus rhythm Prolonged MT interval IVCD, consider atypical RBBB Compared to ECG 04/06/2020 15:49:00 Atrial abnormality no longer present T-wave abnormality no longer present Possible ischemia no longer present Electronically Signed On 05-28-2020 7:11:22 CDT by Abhijit Palomo [email or web address] <ELECTRONICALLY SIGNED> By: Abhijit Palomo MD, [facility] 05/28/2011 9 9 Abhijit Palomo MD, FACC /EPI
[2020-05-28 10:09] VITALS: BP 94/65
== END 2020-05-28 10:59 | disposition short-term general hospital (02) ==
LOC: ER 04:49
PROVIDERS: Emergency Medicine
DX: I13.2 Hypertensive heart and chronic kidney disease with heart failure and with stage 5 chronic kidney disease, or end stage renal disease (principal); E11.22 Type 2 diabetes mellitus with diabetic chronic kidney disease; N18.6 End stage renal disease; I50.9 Heart failure, unspecified; E87.1 Hypo-osmolality and hyponatremia; I95.9 Hypotension, unspecified; J90 Pleural effusion, not elsewhere classified; R53.1 Weakness; I48.91 Unspecified atrial fibrillation; Z87.891 Personal history of nicotine dependence; Z88.5 Allergy status to narcotic agent; Z79.82 Long term (current) use of aspirin; Z79.899 Other long term (current) drug therapy; Z99.2 Dependence on renal dialysis